=== PATIENT | female | born 1940 | race Caucasian/White ===

== ENCOUNTER 2016-07-27 21:52 | Emergency (ER) | payer MEDICARE, OTHER ==
[2016-07-28 00:38] LABS: HEMATOCRIT 41.5 % (36.0-47.0); HEMOGLOBIN 13.4 g/dL (12.0-15.5); HGB HCT DIFFERENCE -1.3; MEAN CORPUSCULAR HEMOGLOBIN 30.2 pg (27.0-33.4); MEAN CORPUSCULAR HGB CONC 32.4 g/dL (32.0-36.0); MEAN CORPUSCULAR VOLUME 93 fl (80-97); RED BLOOD COUNT 4.45 10^6/uL (3.72-5.28); RED CELL DISTRIBUTION WIDTH 14.2 % (11.5-14.0); WHITE BLOOD COUNT 12.4 10^3/uL (4.0-10.5)
[2016-07-28 00:40] LABS: APPEARANCE,URINE CLEAR; BILIRUBIN,URINE NEGATIVE (NEGATIVE); GLUCOSE, URINE NEGATIVE (NEGATIVE); KETONES,URINE NEGATIVE (NEGATIVE); LEUKOCYTE ESTERASE,URINE SMALL (NEGATIVE); NITRITE,URINE NEGATIVE (NEGATIVE); PROTEIN,URINE NEGATIVE (NEGATIVE); URINE SPECIFIC GRAVITY 1.009; UROBILINOGEN,URINE NEGATIVE mg/dL (<2.0)
[2016-07-28 00:47] LABS: PROTHROMBIN TIME 12.5 SEC (11.4-15.4)
[2016-07-28 00:48] LABS: PARTIAL THROMBOPLASTIN TIME 26.1 SEC (23.5-35.8)
[2016-07-28 00:55] LABS: BAND NEUTROPHILS % (MANUAL) 3 % (3-5); BASOPHILS % (MANUAL) 0 % (0-2); EOSINOPHILS % (MANUAL) 4 % (0-6); LYMPHOCYTES % (MANUAL) 47 % (13-45); TOTAL CELLS COUNTED 100
[2016-07-28 00:56] LABS: OVALOCYTES SLIGHT; POIKILOCYTOSIS SLIGHT; TOXIC GRANULATION SLIGHT
[2016-07-28 01:03] LABS: CREATINE KINASE MB 0.61 ng/mL (<4.55)
[2016-07-28 01:06] LABS: TROPONIN I < 0.012 ng/mL
[2016-07-28] MEDS ORDERED: FUROSEMIDE INJ/PF 40 MG/4 ML SDV IV ONE (01:23)
[2016-07-28] MEDS ORDERED: LORAZEPAM 0.5 MG TABLET PO ONE (01:23)
[2016-07-28 01:26] LABS: ALANINE AMINOTRANSFERASE 38 U/L (9-52); ALBUMIN 4.4 g/dL (3.5-5.0); ALKALINE PHOSPHATASE 74 U/L (38-126); ANION GAP 14 (5-19); ASPARTATE AMINO TRANSFERASE 57 U/L (14-36); BILIRUBIN,TOTAL 0.8 mg/dL (0.2-1.3); BLOOD UREA NITROGEN 23 mg/dL (7-20); CALCIUM 9.4 mg/dL (8.4-10.2); CARBON DIOXIDE 29 mmol/L (22-30); CHLORIDE 102 mmol/L (98-107); CREATINE KINASE 55 U/L (30-135); GLUCOSE 132 mg/dL (75-110); POTASSIUM 3.8 mmol/L (3.6-5.0); SODIUM 144.9 mmol/L (137-145); TOTAL PROTEIN 7.1 g/dL (6.3-8.2)
--- NOTE | 2016-07-28 01:37 | ER Document Report ---
ED General - General Chief Complaint: Cough Stated Complaint: COUGHING UP BLOOD Time seen by provider: 01:36 Notes: Patient is a 76-year-old female that comes emergency department for chief complaint of nosebleed. Patient states that she was eating dinner when she felt a trickling on her nose and wiped and noticed to be blood, she states that she went through about 6 tissues and then the bleeding stopped. Patient states that she has been very anxious today because it is the anniversary of her 's and she visited his grave, she also states she got in an argument with a family member. Patient states that she has been compliant with her blood pressure medications of losartan and metoprolol, states she is out of her Lasix and has been so for a few days, just got a prescription refill today, not taken a dose yet. Patient denies any shortness of breath, chest pain, she states she had a headache earlier which has resolved. She denies any focal numbness or weakness. She is not on a blood thinner other than aspirin. TRAVEL OUTSIDE OF THE [place] IN LAST 30 DAYS: No - Related Data Allergies/Adverse Reactions: Iodinated Contrast Media - Oral and [IV Dye, Iodine Containing] Allergy (Unknown , Verified 12/06/15 19:37) levofloxacin [From Levaquin] Allergy (Unknown, Verified 12/06/15 19:37) simvastatin [Simvastatin] Allergy (Unknown, Verified 12/06/15 19:37) tramadol Allergy (Verified 12/06/15 19:37) Past Medical History - General Information source: Patient - Social History Smoking Status: Never Smoker Frequency of alcohol use: None Drug Abuse: None Lives with: Family Family History: Reviewed & Not Pertinent Patient has suicidal ideation: No Patient has homicidal ideation: No - Past Medical History Cardiac Medical History: Reports: Hx Congestive Heart Failure, Hx Heart Attack, Hx Hypercholesterolemia, Hx Hypertension Denies: Hx Atrial Fibrillation Pulmonary Medical History: Reports: Hx Bronchitis, Hx Pneumonia Denies: Hx Asthma, Hx COPD, Hx Tuberculosis Neurological Medical History: Denies: Hx Migraine, Hx Seizures Endocrine Medical History: Denies: Hx Diabetes Mellitus Type 1, Hx Diabetes Mellitus Type 2 Renal/ Medical History: Reports: Hx End Stage Renal Disease. Denies: Hx Kidney Stones, Hx Peritoneal Dialysis Malignancy Medical History: Reports: Hx Leukemia GI Medical History: Reports: Hx Gastroesophageal Reflux Disease. Denies: Hx Hiatal Hernia, Hx Ulcer Musculoskeltal Medical History: Reports Hx Arthritis - gout Psychiatric Medical History: Denies: Hx Attention Deficit Hyperactivity Disorder, Hx Bipolar Disorder, Hx Depression, Hx Schizophrenia Past Surgical History: Reports: Hx Cardiac Catheterization, Hx Cardiac Surgery, Hx Thyroid Surgery - Thyroidectomy. Denies: Hx Abdominal Surgery, Hx Appendectomy, Hx Bowel Surgery, Hx Breast Surgery, Hx Section, Hx Cholecystectomy, Hx Genitourinary Surgery, Hx Gynecologic Surgery, Hx Hysterectomy, Hx Kidney (Renal Surgery), Hx Mastectomy, Hx Neurologic Surgery, Hx Nose Surgery, Hx Open Heart Surgery, Hx Oral Surgery, Hx Orthopedic Surgery, Hx Pancreatic Surgery, Hx Pituitary Surgery, Hx Rectal Surgery, Hx Tonsillectomy , Hx Tubal Ligation, Hx Urinary Tract Surgery, Hx Vascular Surgery - Immunizations Immunizations up to date: Yes Hx Diphtheria, Pertussis, Tetanus Vaccination: Yes Hx Pneumococcal Vaccination: 07/14/13 Review of Systems - Review of Systems Constitutional: No symptoms reported EENT: See HPI Cardiovascular: See HPI Respiratory: See HPI Gastrointestinal: No symptoms reported Genitourinary: No symptoms reported Female Genitourinary: No symptoms reported Musculoskeletal: No symptoms reported Skin: No symptoms reported Hematologic/Lymphatic: No symptoms reported Neurological/Psychological: See HPI Physical Exam - Vital signs Vitals: Temp Pulse BP Pulse Ox 98.0 F 68 198/88 H 95 07/27/16 22:45 07/27/16 22:45 07/27/16 22:45 07/27/16 22:45 Interpretation: Normal - General General appearance: Appears well, Alert - HEENT Head: Normocephalic, Atraumatic Eyes: Normal Conjunctiva: Normal Eyelashes: Normal Pupils: PERRL Ears: Normal External canal: Normal Tympanic membrane: Normal Sinus: Normal Nasal: Other - There is a small amount of dried epistaxis noted in the left nasal passage, no current bleeding, no septal hematoma or any swelling Pharynx: Normal Neck: Normal - Respiratory Respiratory status: No respiratory distress Chest status: Nontender Breath sounds: Normal Chest palpation: Normal - Cardiovascular Rhythm: Regular. No: Tachycardia Heart sounds: Normal auscultation, S1 appreciated, S2 appreciated Murmur: No - Abdominal Inspection: Normal Distension: No distension Bowel sounds: Normal Tenderness: Nontender. No: Tender, Guarding Organomegaly: No organomegaly - Back Back: Normal, Nontender - Extremities General upper extremity: Normal inspection, Nontender, Normal color, Normal ROM , Normal temperature General lower extremity: Normal inspection, Nontender, Normal color, Normal ROM , Normal temperature, Normal weight bearing. No: Gisella's sign - Neurological Neuro grossly intact: Yes Cognition: Normal Orientation: AAOx4 [place] Coma Scale Eye Opening: Spontaneous Beatriz Coma Scale Verbal: Oriented [place] Coma Scale Motor: Obeys Commands [place] Coma Scale Total: 15 Speech: Normal Motor strength normal: LUE, RUE, LLE, RLE Sensory: Normal - Psychological Associated symptoms: Normal affect, Normal mood - Skin Skin Temperature: Warm Skin Moisture: Dry Skin Color: Normal Course - Re-evaluation Re-evalutation: Patient well-appearing, she does have a small amount of Rales bilaterally noted , patient has been out of her Lasix, patient given a dose of Lasix here along with Ativan, patient takes 0.5 mg of Ativan at home as needed (she is prescribed this but she was not sure with anxiety medication was so she did not take this). No epistaxis currently noted, dried blood. BNP is somewhat elevated, chest x-ray is unremarkable, patient is not hypoxic, does not have labored breathing, not complaining of shortness of breath. EKG baseline, very mild leukocytosis, no fever, no tachycardia. On reevaluation patient is smiling, continues to be well appearing, however she continues to be hypertensive. Patient reminds me that she has forgotten to take her metoprolol succinate earlier today, patient was given a dose of captopril and had excellent results with this. Patient and family member asked about how they might begin looking into home health or general assistance, they state they will follow-up with her primary care, she states she'll return if she worsens in any way including shortness of breath, chest pain, return to nosebleed that cannot be controlled, or any other concerning symptoms. - Vital Signs Vital signs: Temp Pulse Resp BP Pulse Ox 97.7 F 68 16 151/81 H 99 07/28/16 05:04 07/27/16 22:45 07/28/16 04:45 07/28/16 04:45 07/28/16 04:45 - Laboratory Result Diagrams: 07/28/16 00:05 07/28/16 00:05 Laboratory results interpreted by me: 07/27/16 07/28/16 07/28/16 23:49 00:05 00:05 WBC 12.4 H RDW 14.2 H Seg Neuts % (Manual) 37 L Lymphocytes % (Manual) 47 H Abs Lymphs (Manual) 6.6 H BUN 23 H Creatinine 1.30 H Est GFR ( Amer) 48 L Est GFR (Non-Af Amer) 40 L Glucose 132 H AST 57 H NT-Pro-B Natriuret Pep Ur Leukocyte Esterase SMALL H 07/28/16 00:05 WBC RDW Seg Neuts % (Manual) Lymphocytes % (Manual) Abs Lymphs (Manual) BUN Creatinine Est GFR ( Amer) Est GFR (Non-Af Amer) Glucose AST NT-Pro-B Natriuret Pep 2000 H Ur Leukocyte Esterase Discharge - Discharge Clinical Impression: Epistaxis, Hypertensive urgency Condition: Stable Disposition: HOME, SELF-CARE Additional Instructions: Please resume your Lasix and metoprolol as prescribed. Please follow nosebleed instructions below. If you feel anxious or worked up please take your lorazepam as prescribed. Follow-up with your primary care for arrangements for assistance/home health. Return to the emergency department for any concerning or worsening symptoms including shortness of breath, severe headache, returned nosebleed, chest pain, or any other concerning symptoms. Nosebleed Instructions There is a significant chance of re-bleeding following a nosebleed. Proper care makes this less likely. Do not touch the nose for 24 hours. Do not blow the nose forcefully for one week. After 24 hours, gently apply Vaseline ointment to both nostrils with the tip of a finger, three times a day, for one week. It's normal to have a bloody mucous discharge for a few days. If active bleeding recurs, blow all the blood from the nose, then sit quietly and pinch the nose as firmly as possible for 10 minutes. If this does not stop the bleeding, return for further care. If packing was left in the nose and it starts to come out of the nostril, either tuck it back in or cut it off. Don't pull it out. Return for recheck and removal of the packing when instructed. Persons with frequent nosebleeds should avoid aspirin (unless prescribed for another reason). Humidity in the bedroom, and petroleum jelly applied to the nostrils at night may help. Referrals: PARESH NEUMANN MD [Primary Care Provider] - Follow up as needed
[2016-07-28] MEDS ORDERED: HYDRALAZINE HCL INJ/PF 20 MG/1 ML SDV IV ONE (03:48)
[2016-07-28] MEDS ORDERED: METOPROLOL TARTRATE 100 MG TABLET PO ONE (03:52)
[2016-07-28] MEDS ORDERED: CAPTOPRIL 25 MG TABLET PO ONE (03:55)
[2016-07-28 05:03] VITALS: BP 151/81
--- NOTE | 2016-07-28 08:01 | EKG REPORT ---
SEVERITY:- ABNORMAL ECG - SINUS RHYTHM LEFT ANTERIOR FASCICULAR BLOCK LVH WITH SECONDARY REPOLARIZATION ABNORMALITY ANTERIOR Q WAVES, POSSIBLY DUE TO LVH : Confirmed by: Ronnie Suresh MD 28-Jul-2016 08:01:02
== END 2016-07-28 05:04 | disposition home or self-care (01) ==
LOC: ER 21:52
DX: R04.0 Epistaxis (principal); I16.0 Hypertensive urgency; I13.2 Hypertensive heart and chronic kidney disease with heart failure and with stage 5 chronic kidney disease, or end stage renal disease; I50.9 Heart failure, unspecified; N18.6 End stage renal disease; I25.2 Old myocardial infarction; F41.9 Anxiety disorder, unspecified; D72.829 Elevated white blood cell count, unspecified; Z79.899 Other long term (current) drug therapy; Z79.82 Long term (current) use of aspirin; Z91.041 Radiographic dye allergy status; Z88.1 Allergy status to other antibiotic agents; Z88.8 Allergy status to other drugs, medicaments and biological substances; Z88.5 Allergy status to narcotic agent; Z85.6 Personal history of leukemia; Z91.14 Patient's other noncompliance with medication regimen
CPT/HCPCS: 93005; 99284; 96374; 36415; 82553; 82550; 85025; 85610; 85730; 80053; 81001; 84484; 83880; 71010; 93010; A9270 ×2; J1940; J3490

== ENCOUNTER 2017-03-01 10:22 | Inpatient (IN) | payer MEDICARE, OTHER ==
[2017-03-01] MEDS ORDERED: ASPIRIN 81 MG TABLET, CHEWABLE PO ONE (10:54)
--- NOTE | 2017-03-01 10:58 | ER Document Report ---
ED Medical Screen (RME) - General Chief Complaint: Chest Pain Stated Complaint: CHEST PAIN Time Seen by Provider: 03/01/17 10:57 Notes: The patient is a 76-year-old female, past medical history CAD, presents with 2 days of intermittent chest pain radiating to her left jaw. She had this in the past when she had her ID. Currently chest pain-free. PE: NAD. Bradycardia. Lungs CTAB. I have greeted and performed a rapid initial assessment of this patient. A comprehensive ED assessment and evaluation of the patient, analysis of test results and completion of the medical decision making process will be conducted by additional ED providers. TRAVEL OUTSIDE OF THE [place] IN LAST 30 DAYS: No - Related Data Allergies/Adverse Reactions: Iodinated Contrast- Oral and IV Dye [IV Dye, Iodine Containing] Allergy (Unknown , Verified 12/06/15 19:37) levofloxacin [From Levaquin] Allergy (Unknown, Verified 12/06/15 19:37) simvastatin [Simvastatin] Allergy (Unknown, Verified 12/06/15 19:37) tramadol Allergy (Verified 12/06/15 19:37) Past Medical History - Past Medical History Cardiac Medical History: Reports: Hx Congestive Heart Failure, Hx Heart Attack, Hx Hypercholesterolemia, Hx Hypertension Denies: Hx Atrial Fibrillation Pulmonary Medical History: Reports: Hx Bronchitis, Hx Pneumonia Denies: Hx Asthma, Hx COPD, Hx Tuberculosis Neurological Medical History: Denies: Hx Migraine, Hx Seizures Endocrine Medical History: Denies: Hx Diabetes Mellitus Type 1, Hx Diabetes Mellitus Type 2 Renal/ Medical History: Reports: Hx End Stage Renal Disease. Denies: Hx Kidney Stones, Hx Peritoneal Dialysis Malignancy Medical History: Reports: Hx Leukemia GI Medical History: Reports: Hx Gastroesophageal Reflux Disease. Denies: Hx Hiatal Hernia, Hx Ulcer Musculoskeltal Medical History: Reports Hx Arthritis - gout Psychiatric Medical History: Denies: Hx Attention Deficit Hyperactivity Disorder, Hx Bipolar Disorder, Hx Depression, Hx Schizophrenia Past Surgical History: Reports: Hx Cardiac Catheterization, Hx Cardiac Surgery, Hx Thyroid Surgery - Thyroidectomy. Denies: Hx Abdominal Surgery, Hx Appendectomy, Hx Bowel Surgery, Hx Breast Surgery, Hx Section, Hx Cholecystectomy, Hx Genitourinary Surgery, Hx Gynecologic Surgery, Hx Hysterectomy, Hx Kidney (Renal Surgery), Hx Mastectomy, Hx Neurologic Surgery, Hx Nose Surgery, Hx Open Heart Surgery, Hx Oral Surgery, Hx Orthopedic Surgery, Hx Pancreatic Surgery, Hx Pituitary Surgery, Hx Rectal Surgery, Hx Tonsillectomy , Hx Tubal Ligation, Hx Urinary Tract Surgery, Hx Vascular Surgery - Immunizations Immunizations up to date: Yes Hx Diphtheria, Pertussis, Tetanus Vaccination: Yes Physical Exam - Vital signs Vitals: Temp Pulse Resp BP Pulse Ox 98.0 F 49 L 20 169/66 H 96 03/01/17 10:39 03/01/17 10:39 03/01/17 10:39 03/01/17 10:39 03/01/17 10:39 Course - Vital Signs Vital signs: Temp Pulse Resp BP Pulse Ox 98.0 F 49 L 20 169/66 H 96 03/01/17 10:39 03/01/17 10:39 03/01/17 10:39 03/01/17 10:39 03/01/17 10:39
--- NOTE | 2017-03-01 11:22 | ER Document Report ---
ED Cardiac - General Mode of Arrival: Wheelchair Information source: Patient, Relative - selmaers x2 TRAVEL OUTSIDE OF THE [place] IN LAST 30 DAYS: No - HPI Patient complains to provider of: Chest pain, Other - jaw pain Chest pain radiation location: Left jaw Similar symptoms previously: Yes Recently seen / treated by doctor: No <MAXIM STRICKLAND - Last Filed: 03/01/17 15:22> <IGGY MENDEZ - Last Filed: 03/01/17 19:32> - General Chief Complaint: Chest Pain Stated Complaint: CHEST PAIN Time Seen by Provider: 03/01/17 11:42 Notes: Patient is a pleasant 76-year-old female presents emergency department for intermittent chest pain and left jaw pain 2 days. Patient has a history of a previous NM where she had left arm and left jaw pain. Patient took 2 baby Aspirin yesterday to relieve the pain and last night when she woke up with the pain she took some of her medication (beta aaron 100 mg). Patient states she usually takes her medications in the morning. Patient denies any new extremity edema or weight gain. Patient also denies any new weakness or increased tiredness due to shortness of breath or the chest pain. Patient takes Lasix daily and is on 3L home O2. Patient lost her 2 years ago and states she has had a rough 2 years and is having lots of stress. Daughters state the patient takes Ativan daily; patient states this takes the edge off her anxiety/ stress. Patient currently does not have any chest pain. Patient denies any history of blood clots. Patient's previous NM was in 1999 and she had pain in her jaw and left arm during this event. Patient states she had a stent placed in her "heart and liver." Patient also has a history of kidney disease but does not know anything further about this. Patient also has non-Hodgkin's lymphoma, hypertension, hypercholesterolemia, CHF, and COPD. Patient was last admitted to the hospital about 2 years ago. 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 Brewster PCP: Dr. Redd (MAXIM STRICKLAND) - Related Data Allergies/Adverse Reactions: Iodinated Contrast- Oral and IV Dye [IV Dye, Iodine Containing] Allergy (Unknown , Verified 03/01/17 11:23) levofloxacin [From Levaquin] Allergy (Unknown, Verified 03/01/17 11:23) simvastatin [Simvastatin] Allergy (Unknown, Verified 03/01/17 11:23) tramadol Allergy (Verified 03/01/17 11:23) Home Medications: Current Home Medications Allopurinol [Zyloprim 300 mg Tablet] 300 mg PO DAILY 03/01/17 [History] Atorvastatin Calcium [Lipitor 10 mg Tablet] 10 mg PO QHS 03/01/17 [History] Colchicine [Colcrys 0.6 mg Tablet] 0.6 mg PO DAILY 03/01/17 [History] Duloxetine HCl 30 mg PO Q12 03/01/17 [History] Escitalopram Oxalate [Lexapro 10 mg Tablet] 10 mg PO DAILY 03/01/17 [History] Furosemide [Lasix 40 mg Tablet] 40 mg PO QAM 03/01/17 [History] Gabapentin [Neurontin 100 mg Capsule] 100 mg PO Q8 03/01/17 [History] Isosorbide Mononitrate [Imdur 60 mg Tablet.er] 60 mg PO DAILY 03/01/17 [History] Levothyroxine Sodium [Synthroid] 125 mcg PO QAM 03/01/17 [History] Lorazepam [Ativan 0.5 mg Tablet] 0.5 mg PO TIDP PRN 03/01/17 [History] Metoprolol Succinate [Toprol XL 100 mg Tablet] 100 mg PO DAILY 03/01/17 [History ] Zolpidem Tartrate [Ambien 5 mg Tablet] 5 mg PO QHS 03/01/17 [History] Past Medical History - General Information source: Patient - Social History Smoking Status: Unknown if Ever Smoked Family History: None Patient has suicidal ideation: No Patient has homicidal ideation: No - Past Medical History Cardiac Medical History: Reports: Hx Congestive Heart Failure, Hx Heart Attack - 1999 w/ stent, Hx Hypercholesterolemia, Hx Hypertension Pulmonary Medical History: Reports: Hx Bronchitis, Hx Pneumonia Renal/ Medical History: Reports: Hx End Stage Renal Disease Malignancy Medical History: Reports: Hx Leukemia GI Medical History: Reports: Hx Gastroesophageal Reflux Disease Musculoskeltal Medical History: Reports Hx Arthritis - gout Past Surgical History: Reports: Hx Cardiac Catheterization, Hx Thyroid Surgery - Thyroidectomy - Immunizations Immunizations up to date: Yes Hx Diphtheria, Pertussis, Tetanus Vaccination: Yes Hx Pneumococcal Vaccination: 07/14/13 <MAXIM STRICKLAND - Last Filed: 03/01/17 15:22> Review of Systems - Review of Systems Constitutional: No symptoms reported EENT: See HPI, Other - jaw pain Cardiovascular: See HPI, Chest pain Respiratory: No symptoms reported Gastrointestinal: No symptoms reported Genitourinary: No symptoms reported Female Genitourinary: No symptoms reported Musculoskeletal: See HPI Skin: No symptoms reported Hematologic/Lymphatic: No symptoms reported Neurological/Psychological: No symptoms reported -: Yes All other systems reviewed and negative <EILEENMAXIM GALO - Last Filed: 03/01/17 15:22> Physical Exam - Vital signs Interpretation: Hypertensive, Bradycardic <MAXIM STRICKLAND - Last Filed: 03/01/17 15:22> <ANDREAIGGY - Last Filed: 03/01/17 19:32> - Vital signs Vitals: Temp Pulse Resp BP Pulse Ox 98.0 F 49 L 20 169/66 H 96 03/01/17 10:39 03/01/17 10:39 03/01/17 10:39 03/01/17 10:39 03/01/17 10:39 - Notes Notes: GENERAL: Alert, interacts well, pleasant. Mild distress. HEAD: Normocephalic, atraumatic. EYES: Appear normal. Pupils equal, round, and reactive to light. Extraocular movements intact. ENT: Moist mucus membranes, tongue midline. NECK: Full range of motion. Supple. Trachea midline. LUNGS: Crackles at the bases bilaterally. No respiratory distress. HEART: Regular rate and rhythm. No murmurs, gallops, or rubs. ABDOMEN: Soft, non-tender. Non-distended. Normal bowel sounds. EXTREMITIES: Moves all 4 extremities spontaneously. Normal strength. No edema. Good femoral, radial, and dorsalis pedis pulses. NEUROLOGICAL: Alert and oriented x3. Normal speech. No focal neurological deficits. GSC 15. PSYCH: Normal affect, normal mood. SKIN: Warm, dry, normal turgor. No rashes or lesions noted. (MAXIM STRICKLAND) Course - Laboratory Result Diagrams: 03/01/17 11:10 03/01/17 11:10 - Consults Dr. Redd Time consulted: 13:47 Consulted provider: will see as inpatient <EMMAXIM - Last Filed: 03/01/17 15:22> - Laboratory Result Diagrams: 03/01/17 11:10 03/01/17 11:10 <IGGY MENDEZ - Last Filed: 03/01/17 19:32> - Re-evaluation Re-evalutation: 03/01/17 14:44 Patient presents the emergency department 2 day history of intermittent chest pain radiating to her left jaw. She has a history of NM in 1999. With stent placement has not had any problems since and sees Dr. Ghotra. She has history of CHF and COPD and is chronically on 2 L of oxygen at night. Past to evening she is woke up in the middle the night and taken a double dose of her heart medication which is primarily been metoprolol. So she is taken to days with a 200 mg a day. She states that she then goes back to bed but her family found out about today and asked her to come in here. On ED arrival she is chest pain-free and bradycardic which I suspect is due to the beta-blockers that she is increased over the past 2 days. EKG is nonacute except for worsening ST inversion in V5 and V6. Troponin is initially negative chest x- ray is nonacute she remains hemodynamically stable and chest pain-free after receiving aspirin I spoke with Dr. Munoz he is going admit patient to hospital IMCU cardiac consultation and further assessment (IGGY MENDEZ) - Vital Signs Vital signs: Temp Pulse Resp BP Pulse Ox 97.5 F 55 L 20 171/73 H 95 03/01/17 17:24 03/01/17 17:24 03/01/17 17:24 03/01/17 17:24 03/01/17 17:24 - Laboratory Laboratory results interpreted by me: 03/01/17 03/01/17 11:10 11:10 WBC 14.9 H RDW 14.6 H Seg Neuts % (Manual) 26 L Band Neutrophils % 2 L Lymphocytes % (Manual) 66 H Abs Lymphs (Manual) 10.0 H Creatinine 1.31 H Est GFR ( Amer) 48 L Est GFR (Non-Af Amer) 39 L Glucose 184 H Direct Bilirubin 0.5 H AST 74 H ALT 65 H - Consults Dr. Redd Reason for consultation: 03/01/17 13:47 Dr. Redd was paged for possible admission. 03/01/17 14:[address] Redd again for possible admission. 03/01/17 14:[address] Redd who will admit the patient. (MAXIM STRICKLAND) Critical Care Note - Critical Care Note Total time excluding time spent on procedures (mins): 60 <IGGY MENDEZ - Last Filed: 03/01/17 19:32> Discharge <MAXIM STRICKLAND - Last Filed: 03/01/17 15:22> - Discharge Admitting Provider: [facility] Unit Admitted: IMCU <IGGY MENDEZ - Last Filed: 03/01/17 19:32> - Discharge Clinical Impression: CAD (coronary artery disease) Qualifiers: Coronary Disease-Associated Artery/Lesion type: unspecified vessel or lesion type [place] vs. transplanted heart: [place] heart Associated angina: without angina Qualified Code(s): I25.10 - Atherosclerotic heart disease of [place] coronary artery without angina pectoris Condition: Stable Disposition: ADMITTED INPATIENT Scribe Attestation: 03/01/17 14:43 I personally performed the services described in the documentation reviewed the documentation recorded by my scribe in my presence and it accurately and completely records my words and actions (IGGY MENDEZ) Scribe Documentation - Scribe Written by Scribe:: Latrice Wei, 03/01/2017 12:34 acting as scribe for :: Andrea <MAXIM STRICKLAND - Last Filed: 03/01/17 15:22>
--- NOTE | 2017-03-01 11:44 | RADIOLOGY REPORT (SQ) ---
EXAM DESCRIPTION: CHEST SINGLE VIEW COMPLETED DATE/TIME: 03/01/2017 11:36 am REASON FOR STUDY: chest pain COMPARISON: 05/29/2016 EXAM PARAMETERS: NUMBER OF VIEWS: One view. TECHNIQUE: Digital Frontal radiographic views of the chest acquired. RADIATION DOSE: NA LIMITATIONS: None. FINDINGS: LUNGS AND PLEURA: There is mild scarring right base. There is no infiltrate or effusion n o mass is seen MEDIASTINUM AND HILAR STRUCTURES: No masses or contour abnormalities. HEART AND VASCULAR STRUCTURES: The heart size is borderline. There is no evidence of failure BONES: No acute findings. HARDWARE: None. OTHER: No other significant finding. IMPRESSION: Borderline cardiomegaly without CHF. TECHNICAL DOCUMENTATION: JOB ID: [id number]- All Rights Reserved
[2017-03-01 11:53] LABS: HEMATOCRIT 38.5 % (36.0-47.0); HEMOGLOBIN 12.9 g/dL (12.0-15.5); HGB HCT DIFFERENCE 0.2; MEAN CORPUSCULAR HGB CONC 33.5 g/dL (32.0-36.0); MEAN CORPUSCULAR VOLUME 96 fl (80-97); RED BLOOD COUNT 4.02 10^6/uL (3.72-5.28); RED CELL DISTRIBUTION WIDTH 14.6 % (11.5-14.0); WHITE BLOOD COUNT 14.9 10^3/uL (4.0-10.5)
[2017-03-01 12:10] LABS: ALANINE AMINOTRANSFERASE 65 U/L (9-52); ALBUMIN 4.2 g/dL (3.5-5.0); ALKALINE PHOSPHATASE 89 U/L (38-126); ANION GAP 11 (5-19); ASPARTATE AMINO TRANSFERASE 74 U/L (14-36); BILIRUBIN,DIRECT 0.5 mg/dL (0.0-0.4); BILIRUBIN,TOTAL 0.8 mg/dL (0.2-1.3); BLOOD UREA NITROGEN 17 mg/dL (7-20); CALCIUM 9.7 mg/dL (8.4-10.2); CARBON DIOXIDE 30 mmol/L (22-30); CHLORIDE 99 mmol/L (98-107); CREATINE KINASE 43 U/L (30-135); CREATININE RESULT 1.31 mg/dL (0.52-1.25); GLUCOSE 184 mg/dL (75-110); POTASSIUM 4.2 mmol/L (3.6-5.0); SODIUM 139.8 mmol/L (137-145); TOTAL PROTEIN 6.4 g/dL (6.3-8.2)
[2017-03-01 12:19] LABS: BAND NEUTROPHILS % (MANUAL) 2 % (3-5); BASOPHILS % (MANUAL) 0 % (0-2); EOSINOPHILS % (MANUAL) 1 % (0-6); LYMPHOCYTES % (MANUAL) 66 % (13-45); TOTAL CELLS COUNTED 100
[2017-03-01 12:21] LABS: ANISOCYTOSIS SLIGHT; OVALOCYTES SLIGHT; POIKILOCYTOSIS SLIGHT; ROULEAUX 1+
[2017-03-01 12:22] LABS: CREATINE KINASE MB 0.45 ng/mL (<4.55)
[2017-03-01 12:31] LABS: TROPONIN I 0.051 ng/mL
[2017-03-01] MEDS ORDERED: NITROGLYCERIN 0.4 MG/TAB 25 TAB/BOTTLE SL PRN (16:58)
[2017-03-01] MEDS ORDERED: LORAZEPAM 0.5 MG TABLET PO PRN (17:06)
--- NOTE | 2017-03-01 17:17 | PDOC H&P ---
History of Present Illness Admission Date/PCP: 03/01/17 15:11 PARESH NEUMANN, Patient complains of: Chest pain History of Present Illness: EVER CARRASCO is a 76 year old female Past Medical History Cardiac Medical History: Reports: Congestive Heart Failure, Coronary Artery Disease, Myocardial Infarction - 1999 w/ stent, Hyperlipidema, Hypertension Denies: Atrial Fibrillation Pulmonary Medical History: Reports: Bronchitis, Pneumonia Denies: Asthma, Chronic Obstructive Pulmonary Disease (COPD), Tuberculosis Neurological Medical History: Denies: Migraine, Seizures Endocrine Medical History: Reports: Hypothyroidism Denies: Diabetes Mellitus Type 1, Diabetes Mellitus Type 2 Renal/ Medical History: Reports: Chronic Kidney Disease Malignancy Medical History: Reports: Leukemia GI Medical History: Reports: Gastroesophageal Reflux Disease Denies: Hiatal Hernia Musculoskeltal Medical History: Reports: Arthritis - gout Psychiatric Medical History: Denies: Attention Deficit Hyperactivity Disorder, Bipolar Disorder, Depression Hematology: Denies: Anemia, Sickle Cell Disease Past Surgical History Past Surgical History: Parathyroidectomy Kyphoplasty Past Surgical History: Reports: Cardiac Catheterization, Thyroidectomy Denies: Appendectomy, Section, Cholecystectomy, Hysterectomy, Mastectomy, Orthopedic Surgery, Tonsillectomy, Tubal Ligation, Vascular Surgery Social History Information Source: Patient Lives with: Alone Smoking Status: Former Smoker Frequency of Alcohol Use: None Hx Recreational Drug Use: No Hx Prescription Drug Abuse: No - Advance Directive Resuscitation Status: Full Code Family History Family History: None, CVA Parental Family History Reviewed: Yes Children Family History Reviewed: Yes Sibling(s) Family History Reviewed.: Yes Medication/Allergy Home Medications: Allopurinol [Zyloprim 300 mg Tablet] 300 mg PO DAILY 03/01/17 Atorvastatin Calcium [Lipitor 10 mg Tablet] 10 mg PO QHS 03/01/17 Colchicine [Colcrys 0.6 mg Tablet] 0.6 mg PO DAILY 03/01/17 Duloxetine HCl 30 mg PO Q12 03/01/17 Escitalopram Oxalate [Lexapro 10 mg Tablet] 10 mg PO DAILY 03/01/17 Furosemide [Lasix 40 mg Tablet] 40 mg PO QAM 03/01/17 Gabapentin [Neurontin 100 mg Capsule] 100 mg PO Q8 03/01/17 Isosorbide Mononitrate [Imdur 60 mg Tablet.er] 60 mg PO DAILY 03/01/17 Levothyroxine Sodium [Synthroid] 125 mcg PO QAM 03/01/17 Lorazepam [Ativan 0.5 mg Tablet] 0.5 mg PO TIDP PRN 03/01/17 Metoprolol Succinate [Toprol XL 100 mg Tablet] 100 mg PO DAILY 03/01/17 Zolpidem Tartrate [Ambien 5 mg Tablet] 5 mg PO QHS 03/01/17 Allergies/Adverse Reactions: Iodinated Contrast- Oral and IV Dye [IV Dye, Iodine Containing] Allergy (Unknown , Verified 03/01/17 11:23) levofloxacin [From Levaquin] Allergy (Unknown, Verified 03/01/17 11:23) simvastatin [Simvastatin] Allergy (Unknown, Verified 03/01/17 11:23) tramadol Allergy (Verified 03/01/17 11:23) Review of Systems All systems: as per PMH Physical Exam Vital Signs: Temp Pulse Resp BP Pulse Ox 98.0 F 49 L 18 171/90 H 94 03/01/17 10:39 03/01/17 10:39 03/01/17 16:00 03/01/17 14:01 03/01/17 16:00 Intake & Output 02/28/17 03/01/17 03/02/17 06:59 06:59 06:59 Weight 70 kg General appearance: PRESENT: mild distress Head exam: PRESENT: atraumatic Neck exam: ABSENT: carotid bruit, JVD Respiratory exam: PRESENT: crackles, rhonchi Cardiovascular exam: PRESENT: RRR, +S1, +S2 Pulses: PRESENT: +1 pedal pulses bilateral GI/Abdominal exam: PRESENT: normal bowel sounds, soft Extremities exam: PRESENT: tenderness Musculoskeletal exam: PRESENT: tenderness Neurological exam: PRESENT: alert, awake Results Impressions: Chest X-Ray 03/01/17 10:54 IMPRESSION: Borderline cardiomegaly without CHF. Assessment & Plan - Diagnosis (1) Acute coronary syndrome Is this a current diagnosis for this admission?: Yes Plan: Abnormal EKG with T inversions. Slightly elevated troponins We will consult cardiology. Will obtain cardiac enzymes. We will continue with nitrates and Lovenox and aspirin. (2) CAD (coronary artery disease) Qualifiers: Coronary Disease-Associated Artery/Lesion type: unspecified vessel or lesion type [place] vs. transplanted heart: [place] heart Associated angina: without angina Qualified Code(s): I25.10 - Atherosclerotic heart disease of [place] coronary artery without angina pectoris Plan: Continue current regimen (3) CKD (chronic kidney disease) stage 3, GFR 30-59 ml/min Is this a current diagnosis for this admission?: Yes Plan: We will adjust medications accordingly (4) CLL (chronic lymphocytic leukemia) Is this a current diagnosis for this admission?: Yes Plan: Stable continue current treatment (5) COPD (chronic obstructive pulmonary disease) Is this a current diagnosis for this admission?: Yes Plan: Continue O2 and will consider nebulization treatments (6) Hypothyroid Is this a current diagnosis for this admission?: Yes Plan: Continue present dose of medication (7) HTN (hypertension) Is this a current diagnosis for this admission?: Yes Plan: We will adjust blood pressure medications
[2017-03-01 18:59] LABS: CREATINE KINASE MB 0.47 ng/mL (<4.55); TROPONIN I 0.056 ng/mL
--- NOTE | 2017-03-01 20:14 | EKG REPORT ---
SEVERITY:- ABNORMAL ECG - SINUS ARRHYTHMIA LEFT AXIS DEVIATION LVH WITH SECONDARY REPOLARIZATION ABNORMALITY ANTERIOR Q WAVES, POSSIBLY DUE TO LVH : Confirmed by: Omkar Bustillo 01-Mar-2017 20:13:50
[2017-03-01] MEDS: DULOXETINE HCL 30 MG CAPSULE.DR PO SCH (21:21)
[2017-03-01] MEDS: GABAPENTIN 100 MG CAPSULE PO SCH (21:21)
[2017-03-01] MEDS: ATORVASTATIN CALCIUM 10 MG TABLET PO SCH (21:21)
[2017-03-01] MEDS: ENOXAPARIN SODIUM INJ 80 MG/0.8 ML DISP.SYRIN SUBCUT SCH (21:26)
[2017-03-01] MEDS: ZOLPIDEM TARTRATE 5 MG TABLET PO SCH (21:26)
[2017-03-02 01:42] LABS: CREATINE KINASE MB 0.44 ng/mL (<4.55)
[2017-03-02 01:45] LABS: TROPONIN I 0.054 ng/mL
[2017-03-02] MEDS: GABAPENTIN 100 MG CAPSULE PO SCH ×3 (05:20→22:14)
[2017-03-02 07:30] LABS: HEMATOCRIT 36.7 % (36.0-47.0); HEMOGLOBIN 12.1 g/dL (12.0-15.5); HGB HCT DIFFERENCE -0.4; MEAN CORPUSCULAR HEMOGLOBIN 32.3 pg (27.0-33.4); MEAN CORPUSCULAR VOLUME 98 fl (80-97); RED BLOOD COUNT 3.75 10^6/uL (3.72-5.28); RED CELL DISTRIBUTION WIDTH 14.5 % (11.5-14.0); WHITE BLOOD COUNT 11.6 10^3/uL (4.0-10.5)
[2017-03-02 07:37] LABS: ANION GAP 10 (5-19); BLOOD UREA NITROGEN 21 mg/dL (7-20); CALCIUM 9.4 mg/dL (8.4-10.2); CARBON DIOXIDE 28 mmol/L (22-30); CHLORIDE 102 mmol/L (98-107); CREATININE RESULT 1.21 mg/dL (0.52-1.25); GLUCOSE 147 mg/dL (75-110); POTASSIUM 3.9 mmol/L (3.6-5.0); SODIUM 140.1 mmol/L (137-145)
[2017-03-02 07:49] LABS: CREATINE KINASE MB 0.4 ng/mL (<4.55); TROPONIN I 0.044 ng/mL
[2017-03-02] MEDS ORDERED: (PENDING PHARMACY ID) (Levothyroxine Sodium [Synthroid] 125 MCG) PO SCH (08:00)
[2017-03-02 08:04] LABS: BASOPHILS % (MANUAL) 2 % (0-2); EOSINOPHILS % (MANUAL) 5 % (0-6); HYPOCHROMASIA SLIGHT; LYMPHOCYTES % (MANUAL) 71 % (13-45); POLYCHROMASIA SLIGHT; SMUDGE CELLS PRESENT; TOTAL CELLS COUNTED 100
--- NOTE | 2017-03-02 08:32 | PDOC PROGRESS REPORT ---
Subjective Progress Note for:: 03/02/17 Subjective:: The patient states to feel much better. She denies any chest pain or jaw pain. Cardiac enzymes were stable. Her EKG was unchanged. Physical Exam Vital Signs: Temp Pulse Resp BP Pulse Ox 98.2 F 52 L 18 154/58 H 98 03/02/17 07:18 03/02/17 07:18 03/02/17 07:18 03/02/17 07:18 03/02/17 07:18 Intake & Output 03/01/17 03/02/17 03/03/17 06:59 06:59 06:59 Intake Total 525 Balance 525 Weight 99.1 kg General appearance: PRESENT: no acute distress Head exam: PRESENT: atraumatic Eye exam: PRESENT: conjunctiva pink Neck exam: ABSENT: carotid bruit Respiratory exam: PRESENT: rhonchi Cardiovascular exam: PRESENT: bradycardia, +S1, +S2 Pulses: PRESENT: +1 pedal pulses bilateral GI/Abdominal exam: PRESENT: normal bowel sounds, soft Extremities exam: PRESENT: full ROM Musculoskeletal exam: PRESENT: ambulatory Neurological exam: PRESENT: alert, awake Results Laboratory Results: 03/02/17 06:30 03/02/17 06:30 03/02/17 03/02/17 06:30 06:30 WBC 11.6 H RBC 3.75 Hgb 12.1 Hct 36.7 MCV 98 H MCH 32.3 MCHC 33.0 RDW 14.5 H Plt Count 166 Seg Neutrophils % Not Reportable Lymphocytes % Not Reportable Monocytes % Not Reportable Eosinophils % Not Reportable Basophils % Not Reportable Absolute Neutrophils Not Reportable Absolute Lymphocytes Not Reportable Absolute Monocytes Not Reportable Absolute Eosinophils Not Reportable Absolute Basophils Not Reportable Sodium 140.1 Potassium 3.9 Chloride 102 Carbon Dioxide 28 Anion Gap 10 BUN 21 H Creatinine 1.21 Est GFR ( Amer) 52 L Est GFR (Non-Af Amer) 43 L Glucose 147 H Calcium 9.4 03/01/17 03/02/17 03/02/17 18:02 00:11 06:30 CK-MB (CK-2) 0.47 0.44 0.40 Troponin I 0.056 0.054 0.044 Impressions: Chest X-Ray 03/01/17 10:54 IMPRESSION: Borderline cardiomegaly without CHF. Assessment & Plan - Diagnosis (1) Acute coronary syndrome Is this a current diagnosis for this admission?: Yes Plan: The enzymes are stable. EKG stable. Awaiting cardiology consultation for further recommendations. (2) CAD (coronary artery disease) Qualifiers: Coronary Disease-Associated Artery/Lesion type: unspecified vessel or lesion type [place] vs. transplanted heart: [place] heart Associated angina: without angina Qualified Code(s): I25.10 - Atherosclerotic heart disease of [place] coronary artery without angina pectoris Plan: Stable continue current treatment (3) CKD (chronic kidney disease) stage 3, GFR 30-59 ml/min Is this a current diagnosis for this admission?: Yes Plan: Stable continue current treatment (4) CLL (chronic lymphocytic leukemia) Is this a current diagnosis for this admission?: Yes (5) COPD (chronic obstructive pulmonary disease) Is this a current diagnosis for this admission?: Yes Plan: Continue O2 and will consider nebulization treatments (6) Hypothyroid Is this a current diagnosis for this admission?: Yes (7) HTN (hypertension) Is this a current diagnosis for this admission?: Yes Plan: We will adjust blood pressure medications (8) Bradycardia Is this a current diagnosis for this admission?: Yes Plan: Most probably related to the dose of metoprolol. Will decrease the metoprolol
[2017-03-02] MEDS: FUROSEMIDE 40 MG TABLET PO SCH (08:41)
[2017-03-02] MEDS: LEVOTHYROXINE SODIUM 0.1 MG TABLET PO SCH (08:42)
[2017-03-02] MEDS: LEVOTHYROXINE SODIUM 0.025 MG TABLET PO SCH (08:42)
--- NOTE | 2017-03-02 09:29 | EKG REPORT ---
SEVERITY:- ABNORMAL ECG - SINUS RHYTHM LEFT AXIS DEVIATION LVH WITH SECONDARY REPOLARIZATION ABNORMALITY ANTERIOR Q WAVES, POSSIBLY DUE TO LVH : Confirmed by: Omkar Bustillo 02-Mar-2017 09:28:27
[2017-03-02] MEDS ORDERED: METOPROLOL TARTRATE 100 MG TABLET PO SCH ×2 (10:00)
--- NOTE | 2017-03-02 10:07 | Physician Advisory Note ---
Physician Advisor ProgressNote .: Pursuant to the plan for [facility], I have reviewed the medical record for this patient. Physician Advisor Statement: Please consider documentin. "Chronic hypoxemic respiratory failure requiring __L O2 at home" 2. "chronic diastolic CHF" [ECHO 2010 = EF >60%, possible diast dysfn, mild LVH] STatus: CP stays are "Obs until proven otherwise". This pt has had indet trop I's, nondynamic TWave Inversions, bradycardia due to overuse of beta aaron without associated symptomatic sequelae, is planned for cardiology consult today. Discussed with attending. Appears most appropriate for Obs status, not Inpt, unless pt develops new concerning clinical issues that are well documented that require a 2nd night of in-hospital care. [? Persistent severe bradycardia putting her at risk of ____? .... She has contiinued leukocytosis, but this is baseline for her CLL.] Thanks! CK
[2017-03-02] MEDS: COLCHICINE 0.6 MG TABLET PO SCH (10:23)
[2017-03-02] MEDS: ISOSORBIDE MONONITRATE 60 MG TAB.ER.24H PO SCH (10:23)
[2017-03-02] MEDS: ALLOPURINOL 300 MG TABLET PO SCH (10:23)
[2017-03-02] MEDS: ASPIRIN 81 MG TABLET, ENT COATED PO SCH (10:23)
[2017-03-02] MEDS: DULOXETINE HCL 30 MG CAPSULE.DR PO SCH ×2 (10:23→22:14)
[2017-03-02] MEDS: METOPROLOL TARTRATE 50 MG TABLET PO SCH ×2 (10:23→22:14)
[2017-03-02] MEDS: ENOXAPARIN SODIUM INJ 80 MG/0.8 ML DISP.SYRIN SUBCUT SCH ×2 (10:24→22:16)
[2017-03-02] MEDS: ATORVASTATIN CALCIUM 10 MG TABLET PO SCH (22:14)
[2017-03-02] MEDS: ZOLPIDEM TARTRATE 5 MG TABLET PO SCH (22:16)
[2017-03-03 05:00] LABS: HEMATOCRIT 35.5 % (36.0-47.0); HEMOGLOBIN 12.1 g/dL (12.0-15.5); HGB HCT DIFFERENCE 0.8; MEAN CORPUSCULAR HEMOGLOBIN 33.2 pg (27.0-33.4); MEAN CORPUSCULAR HGB CONC 34.1 g/dL (32.0-36.0); MEAN CORPUSCULAR VOLUME 97 fl (80-97); RED BLOOD COUNT 3.64 10^6/uL (3.72-5.28); WHITE BLOOD COUNT 10.9 10^3/uL (4.0-10.5)
[2017-03-03 05:18] LABS: ANION GAP 11 (5-19); BLOOD UREA NITROGEN 25 mg/dL (7-20); CALCIUM 9.2 mg/dL (8.4-10.2); CARBON DIOXIDE 29 mmol/L (22-30); CHLORIDE 99 mmol/L (98-107); CREATININE RESULT 1.22 mg/dL (0.52-1.25); GLUCOSE 157 mg/dL (75-110); POTASSIUM 3.9 mmol/L (3.6-5.0); SODIUM 139.3 mmol/L (137-145)
[2017-03-03] MEDS: GABAPENTIN 100 MG CAPSULE PO SCH ×2 (06:48→14:09)
[2017-03-03] MEDS: FUROSEMIDE 40 MG TABLET PO SCH (08:00)
[2017-03-03] MEDS: LEVOTHYROXINE SODIUM 0.025 MG TABLET PO SCH (08:00)
[2017-03-03] MEDS: LEVOTHYROXINE SODIUM 0.1 MG TABLET PO SCH (08:00)
--- NOTE | 2017-03-03 08:31 | PDOC PROGRESS REPORT ---
Subjective Progress Note for:: 03/03/17 Subjective:: The patient states to feel the same. She was seen by the cardiology last night and is scheduled for a stress test this morning. She continues to be bradycardic even though we have adjusted her metoprolol. Physical Exam Vital Signs: Temp Pulse Resp BP Pulse Ox 97.6 F 56 L 16 168/73 H 100 03/03/17 04:37 03/03/17 04:37 03/03/17 04:37 03/03/17 04:37 03/03/17 04:37 Intake & Output 03/02/17 03/03/17 03/04/17 06:59 06:59 06:59 Intake Total 525 1688 Output Total 0 Balance 525 1688 Weight 99.1 kg 99.1 kg General appearance: PRESENT: mild distress Head exam: PRESENT: atraumatic Eye exam: PRESENT: conjunctiva pink Neck exam: ABSENT: carotid bruit, JVD Respiratory exam: PRESENT: rhonchi Cardiovascular exam: PRESENT: bradycardia Pulses: PRESENT: +1 pedal pulses bilateral GI/Abdominal exam: PRESENT: normal bowel sounds, soft Extremities exam: PRESENT: full ROM Musculoskeletal exam: PRESENT: ambulatory Neurological exam: PRESENT: alert, awake Results Laboratory Results: 03/03/17 04:40 03/03/17 04:40 03/03/17 03/03/17 04:40 04:40 WBC 10.9 H RBC 3.64 L Hgb 12.1 Hct 35.5 L MCV 97 MCH 33.2 MCHC 34.1 RDW 14.0 Plt Count 154 Sodium 139.3 Potassium 3.9 Chloride 99 Carbon Dioxide 29 Anion Gap 11 BUN 25 H Creatinine 1.22 Est GFR ( Amer) 52 L Est GFR (Non-Af Amer) 43 L Glucose 157 H Calcium 9.2 03/01/17 03/02/17 03/02/17 18:02 00:11 06:30 CK-MB (CK-2) 0.47 0.44 0.40 Troponin I 0.056 0.054 0.044 Impressions: Chest X-Ray 03/01/17 10:54 IMPRESSION: Borderline cardiomegaly without CHF. Assessment & Plan - Diagnosis (1) Acute coronary syndrome Is this a current diagnosis for this admission?: Yes Plan: Presently scheduled for a stress test by cardiology (2) CAD (coronary artery disease) Qualifiers: Coronary Disease-Associated Artery/Lesion type: unspecified vessel or lesion type [place] vs. transplanted heart: [place] heart Associated angina: without angina Qualified Code(s): I25.10 - Atherosclerotic heart disease of [place] coronary artery without angina pectoris Plan: Stable awaiting stress test (3) CKD (chronic kidney disease) stage 3, GFR 30-59 ml/min Is this a current diagnosis for this admission?: Yes Plan: Stable will adjust the diuretics (4) CLL (chronic lymphocytic leukemia) Is this a current diagnosis for this admission?: Yes (5) COPD (chronic obstructive pulmonary disease) Is this a current diagnosis for this admission?: Yes Plan: We will continue with O2 and nebulization treatments (6) Hypothyroid Is this a current diagnosis for this admission?: Yes (7) HTN (hypertension) Is this a current diagnosis for this admission?: Yes Plan: Controlled with continue with present medications (8) Bradycardia Is this a current diagnosis for this admission?: Yes Plan: The bradycardia is persistent despite adjustment in medications. Will need to reevaluate after the stress test to see if any further reduction in beta blockers The persistent symptomatic bradycardia is placed in the patient at risk for possible syncopal episodes and needs to be further evaluated
--- NOTE | 2017-03-03 10:24 | EKG REPORT ---
SEVERITY:- ABNORMAL ECG - SINUS RHYTHM LEFT AXIS DEVIATION LVH WITH SECONDARY REPOLARIZATION ABNORMALITY ANTERIOR Q WAVES, POSSIBLY DUE TO LVH : Confirmed by: Omkar Bustillo 03-Mar-2017 10:24:21
[2017-03-03] MEDS: ENOXAPARIN SODIUM INJ 80 MG/0.8 ML DISP.SYRIN SUBCUT SCH (10:42)
[2017-03-03] MEDS: ALLOPURINOL 300 MG TABLET PO SCH (10:43)
[2017-03-03] MEDS: ISOSORBIDE MONONITRATE 60 MG TAB.ER.24H PO SCH (10:43)
[2017-03-03] MEDS: ASPIRIN 81 MG TABLET, ENT COATED PO SCH (10:43)
[2017-03-03] MEDS: DULOXETINE HCL 30 MG CAPSULE.DR PO SCH (10:43)
[2017-03-03] MEDS: METOPROLOL TARTRATE 50 MG TABLET PO SCH (10:43)
[2017-03-03] MEDS: COLCHICINE 0.6 MG TABLET PO SCH (10:43)
[2017-03-03] MEDS ORDERED: AMINOPHYLLINE INJ/PF 250 MG/10 ML SDV IV ONE (11:24)
[2017-03-03] MEDS ORDERED: REGADENOSON INJ 0.4 MG/5 ML DISP.SYRIN IV ONE (11:24)
--- NOTE | 2017-03-03 12:03 | DRAGON STRESS TEST REPORT ---
INTRAVENOUS LEXISCAN CARDIOLITE STRESS TEST USING SINGLE PHOTON EMMISION COMPUTERIZED TOMOGRAPHIC. DATE OF PROCEDURE: March 03, 2017 INDICATION : Chest pain, known history of CAD CARDIAC RISK FACTORS: Known history of CAD with prior myocardial infarction and stent placement, hypertension, dyslipidemia RESTING EKG: Sinus rhythm, LVH with secondary ST-T wave changes STRESS EKG: No significant changes noted with LexiScan bolus REASON FOR TERMINATION: Protocol. PROCEDURE REPORT: Baseline heart rate 57 beats per minute with blood pressure of 170/74. Patient had no significant complaints. Heart rate at 2 minutes post bolus 61 with a blood pressure of 165/61. 4 minutes post bolus heart rate 59 with blood pressure of 177/63. No significant additional EKG changes were noted. Patient had no significant complaints during the procedure or postprocedure. Patient injected with Aminophyllin 75 mg at 3 minutes or later after Lexiscan bolus. CONCLUSIONS: Normal EKG and hemodynamic response to IV LexiScan. NUCLEAR DATA: At rest the patient was given 14.61 millicuries of technetium 99 sestamibi injected intravenously. As per protocol rest gated SPECT images were obtained. Subsequently the patient was given intravenous LexiScan at a dose of 0.4 mg in 5 mL intravenously, followed by flush with normal saline. Subsequently the stress dose of 42.8 millicuries of technetium 99 sestamibi was injected intravenously. As per protocol stress gated images were obtained. NUCLEAR INTERPRETATION: Both raw and processed data were used for interpretation. Visual, qualitative, computer-generated quantitative data was used. There was good myocardial uptake of technetium compound. Motion artifact and soft tissue attenuations were noted. Increased visceral uptake was noted. No definitive areas of transient perfusion defect noted. No definitive areas of fixed perfusion defect or scars noted. EKG gated imaging showed LV EF at 43 %, rest and stress gated EF similar visually. T. I D. ratio was 1.01. Lung heart ratio noted to be within normal limits 0.32. No significant extracardiac and abnormal radiotracer activities were noted. RV free wall uptake was noted to be borderline increased. IMPRESSION: Also refer to comments under nuclear interpretation. Also test results needs to be interpreted in the context of pretest probability. 1. There is no definitive scintigraphic evidence of LexiScan induced myocardial ischemia. 2. There is no definitive scintigraphic evidence of myocardial infarction/scar. 3. EKG gated imaging shows left ventricular ejection fraction of approximately 43 %. 4. Clinical correlation requested as occasionally single vessel disease or balanced ischemia could be missed. In approximately 10% of the cases Lexiscan may not cause adequate vasodilatory stress. RECOMMENDATIONS: Aggressive risk factor modification, medical therapy. Clinical correlation with echocardiogram derived ejection fraction. Inability to exercise by itself can lead to increased cardiovascular event risks. Consider cardiology consultation and or follow-up if clinically indicated. I AM AVAILABLE FOR CARDIOLOGY CONSULTATION AND FOLLOWUP IF REQUESTED BY PMD Omkar Bustillo M.D., [employer] Operator septic tank service technician, Board certified in cardiovascular diseases, Nuclear cardiology, Echocardiography Cardiac CT and cardiac MRI Ph. [phone] [facility] MEDICAL CENTERJosselyn
[2017-03-03 17:06] VITALS: BP 147/66
--- NOTE | 2017-03-03 19:34 | XCELERA REPORT ---
[address] [address] Transthoracic Echocardiogram Report Name: EVER CARRASCO Age: 76 yrs Gender: Female : 1940 Patient Status: Inpatient Patient Location: [address] [place] [address] Study Date: 03/03/2017 08:28 AM Height: 64 in Weight: 218 lb BSA: 2.0 m2 Procedure: A complete two-dimensional transthoracic echocardiogram was performed (2D, M-mode, spectral and color flow Doppler). The study was technically difficult with many images being suboptimal in quality. Reason For Study: CP Ordering Physician: OMKAR SWAN Performed By: Melly Frausto Interpretation Summary Left ventricular systolic function is low normal. Doppler measurements suggest pseudonormalized left ventricular relaxation, which is associated with grade II/IV or mild to moderate diastolic dysfunction There is mild concentric left ventricular hypertrophy. The left ventricle is grossly normal size. Wall motion cannot be accurately commented on, but no definite regional wall motion abnormalities noted. The right ventricular systolic function is normal. The right atrium is normal in size The left atrium is mildly dilated. There is a mild amount of mitral regurgitation There is no mitral valve stenosis. There is a mild amount of aortic regurgitation There is no aortic valve stenosis There is a trace or physiologic amount of tricuspid regurgitation Tricuspid regurgitation jet envelope not well defined to measure RV systolic pressure accurately. The aortic root is not well visualized but is probably normal size. The inferior vena cava appeared normal and decreased > 50% with respiration (RAP 5-10 mmHg) There is no pericardial effusion. MMode/2D Measurements & Calculations RVDd: 3.6 cm LVIDd: 4.4 cm FS: 28.4 % Ao root diam: 3.1 cm IVSd: 1.3 cm LVIDs: 3.1 cm EDV(Teich): 86.1 ml LVPWd: 1.3 cm ESV(Teich): 38.6 ml Ao root area: 7.3 cm2 EF(Teich): 55.1 % LVOT diam: 2.2 cm LVOT area: 3.7 cm2 Doppler Measurements & Calculations MV E max eliseo: MV dec slope: Ao V2 max: AI max eliseo: 111.4 cm/sec 588.0 cm/sec2 206.2 cm/sec 454.3 cm/sec MV A max eliseo: MV dec time: Ao max PG: AI max P.5 cm/sec 0.19 sec 17.0 mmHg 82.6 mmHg MV E/A: 2.3 Ao V2 mean: AI dec slope: 135.6 cm/sec 158.9 cm/sec2 Ao mean PG: AI P1/2t: 8.6 mmHg 837.4 msec Ao V2 VTI: 49.0 cm MIRLANDE(I,D): 1.8 cm2 MIRLANDE(V,D): 1.6 cm2 LV V1 max PG: SV(LVOT): 88.6 ml PA V2 max: TR max eliseo: 3.2 mmHg 77.8 cm/sec 231.9 cm/sec LV V1 mean PG: PA max PG: TR max P.7 mmHg 2.4 mmHg 21.7 mmHg LV V1 max: 89.4 cm/sec LV V1 mean: 60.8 cm/sec LV V1 VTI: 24.1 cm Left Ventricle The left ventricle is grossly normal size. There is mild concentric left ventricular hypertrophy. Left ventricular systolic function is low normal. Doppler measurements suggest pseudonormalized left ventricular relaxation, which is associated with grade II/IV or mild to moderate diastolic dysfunction. Wall motion cannot be accurately commented on, but no definite regional wall motion abnormalities noted. Right Ventricle The right ventricle is grossly normal size. There is normal right ventricular wall thickness. The right ventricular systolic function is normal. Atria The right atrium is normal in size. The left atrium is mildly dilated. Interarterial septum not well visualized and not well dopplered. Cannot comment on ASD/PFO presence. Mitral Valve There is mild mitral leaflet calcification. There is mild mitral annular calcification. There is no mitral valve stenosis. There is a mild amount of mitral regurgitation. Aortic Valve The aortic valve is mildly calcified. There is no aortic valve stenosis. There is a mild amount of aortic regurgitation. Tricuspid Valve The tricuspid valve is not well visualized, but is grossly normal. There is no tricuspid stenosis. There is a trace or physiologic amount of tricuspid regurgitation. Tricuspid regurgitation jet envelope not well defined to measure RV systolic pressure accurately. Pulmonic Valve The pulmonic valve is not well visualized. Great Vessels The aortic root is not well visualized but is probably normal size. The inferior vena cava appeared normal and decreased > 50% with respiration (RAP 5-10 mmHg). Effusions There is no pericardial effusion. : OMKAR SWAN > Omkar Swan
--- NOTE | 2017-03-03 20:28 | PDOC CONSULTATION ---
Consultation Consult Date: 03/03/17 Attending physician:: PARESH NEUMANN Consult reason:: Chest pain, known CAD History of Present Illness Admission Date/PCP: 03/01/17 16:58 PARESH NEUMANN, Patient complains of: Chest pain History of Present Illness: Patient is a pleasant 76-year-old female admitted through emergency department for intermittent chest pain and left jaw pain 2 days. Patient has a history of a previous AL where she had left arm and left jaw pain. Patient took 2 baby Aspirin yesterday to relieve the pain and last night when she woke up with the pain she took some of her medication (beta aaron 100 mg). Patient states she usually takes her medications in the morning. Patient denies any new extremity edema or weight gain. Patient also denies any new weakness or increased tiredness due to shortness of breath or the chest pain. Patient takes Lasix daily and is on 3L home O2. Patient lost her 2 years ago and states she has had a rough 2 years and is having lots of stress. Daughters state the patient takes Ativan daily; patient states this takes the edge off her anxiety/ stress. Patient currently does not have any chest pain. There has been no recurrences since admission. Patient denies any history of blood clots. Patient' s previous AL was in 1999 and she had pain in her jaw and left arm during this event. Patient states she had a stent placed in her "heart and liver." Patient also has a history of kidney disease but does not know anything further about this. Patient also has non-Hodgkin's lymphoma, hypertension, hypercholesterolemia, CHF, and COPD. Patient was last admitted to the hospital about 2 years ago. This history was reviewed, supplemented and confirmed. Past Medical History Cardiac Medical History: Reports: Congestive Heart Failure, Coronary Artery Disease, Myocardial Infarction - 1999 w/ stent, Hyperlipidema, Hypertension Denies: Atrial Fibrillation Pulmonary Medical History: Reports: Bronchitis, Pneumonia Denies: Asthma, Chronic Obstructive Pulmonary Disease (COPD), Tuberculosis Neurological Medical History: Denies: Migraine, Seizures Endocrine Medical History: Reports: Hypothyroidism Denies: Diabetes Mellitus Type 1, Diabetes Mellitus Type 2 Renal/ Medical History: Reports: Chronic Kidney Disease, End Stage Renal Disease Malignancy Medical History: Reports: Leukemia GI Medical History: Reports: Gastroesophageal Reflux Disease Denies: Hiatal Hernia Musculoskeltal Medical History: Reports: Arthritis - gout Psychiatric Medical History: Reports: Depression Denies: Attention Deficit Hyperactivity Disorder, Bipolar Disorder Hematology: Denies: Anemia, Sickle Cell Disease Past Surgical History Past Surgical History: Reports: Cardiac Catheterization, Thyroidectomy Denies: Appendectomy, Section, Cholecystectomy, Hysterectomy, Mastectomy, Orthopedic Surgery, Tonsillectomy, Tubal Ligation, Vascular Surgery Social History Information Source: Patient Lives with: Alone Smoking Status: Former Smoker Frequency of Alcohol Use: None Hx Recreational Drug Use: No Hx Prescription Drug Abuse: No - Advance Directive Resuscitation Status: Full Code Family History Family History: None, CVA Parental Family History Reviewed: Yes Children Family History Reviewed: Yes Sibling(s) Family History Reviewed.: Yes Medication/Allergy Home Medications: Allopurinol [Zyloprim 300 mg Tablet] 300 mg PO DAILY 03/01/17 Atorvastatin Calcium [Lipitor 10 mg Tablet] 10 mg PO QHS 03/01/17 Colchicine [Colcrys 0.6 mg Tablet] 0.6 mg PO DAILY 03/01/17 Duloxetine HCl 30 mg PO Q12 03/01/17 Escitalopram Oxalate [Lexapro 10 mg Tablet] 10 mg PO DAILY 03/01/17 Furosemide [Lasix 40 mg Tablet] 40 mg PO QAM 03/01/17 Gabapentin [Neurontin 100 mg Capsule] 100 mg PO Q8 03/01/17 Isosorbide Mononitrate [Imdur 60 mg Tablet.er] 60 mg PO DAILY 03/01/17 Levothyroxine Sodium [Synthroid] 125 mcg PO QAM 03/01/17 Lorazepam [Ativan 0.5 mg Tablet] 0.5 mg PO TIDP PRN 03/01/17 Metoprolol Succinate [Toprol XL 100 mg Tablet] 100 mg PO DAILY 03/01/17 Zolpidem Tartrate [Ambien 5 mg Tablet] 5 mg PO QHS 03/01/17 Allergies/Adverse Reactions: Iodinated Contrast- Oral and IV Dye [IV Dye, Iodine Containing] Allergy (Unknown , Verified 03/01/17 11:23) levofloxacin [From Levaquin] Allergy (Unknown, Verified 03/01/17 11:23) simvastatin [Simvastatin] Allergy (Unknown, Verified 03/01/17 11:23) tramadol Allergy (Verified 03/01/17 11:23) Review of Systems Constitutional: ABSENT: chills, fever(s), headache(s), weight gain, weight loss Eyes: ABSENT: visual disturbances Ears: ABSENT: hearing changes Nose, Mouth, and Throat: ABSENT: as per HPI, headache(s), mouth pain, sore throat, vertigo, other Cardiovascular: PRESENT: chest pain, dyspnea on exertion, edema Respiratory: PRESENT: dyspnea. ABSENT: as per HPI, cough, hemoptysis, sputum, other Gastrointestinal: ABSENT: as per HPI, abdominal pain, bloating, coffee ground emesis, constipation, diarrhea, dysphagia, heartburn, hematemesis, hematochezia , melena, nausea, vomiting, other Genitourinary: ABSENT: as per HPI, difficulty urinating, dysuria, hematuria, nocturia, other Musculoskeletal: ABSENT: as per HPI, back pain, deformity, joint swelling, muscle weakness, other Integumentary: ABSENT: as per HPI, diaphoresis, erythema, lesions, pruritus, rash, wounds, other Neurological: ABSENT: abnormal gait, abnormal speech, confusion, dizziness, focal weakness, syncope Psychiatric: ABSENT: anxiety, depression, homidical ideation, suicidal ideation Endocrine: ABSENT: cold intolerance, heat intolerance, polydipsia, polyuria Physical Exam Vital Signs: Temp Pulse Resp BP Pulse Ox 97.9 F 56 L 16 147/66 H 94 03/03/17 17:07 03/03/17 17:07 03/03/17 17:07 03/03/17 17:07 03/03/17 17:07 Intake & Output 03/02/17 03/03/17 03/04/17 06:59 06:59 06:59 Intake Total 525 1688 518 Output Total 0 Balance 525 1688 518 Weight 99.1 kg 99.1 kg General appearance: PRESENT: no acute distress, well-developed, well-nourished Head exam: PRESENT: atraumatic, normocephalic Eye exam: PRESENT: conjunctiva pink, EOMI, PERRLA. ABSENT: scleral icterus Ear exam: PRESENT: normal external ear exam Mouth exam: PRESENT: moist, tongue midline Neck exam: ABSENT: carotid bruit, JVD, lymphadenopathy, thyromegaly Respiratory exam: PRESENT: clear to auscultation shan. ABSENT: rales, rhonchi, wheezes Cardiovascular exam: PRESENT: RRR, +S1 - normal, +S2 - normal, systolic murmur - 2/6 aortic area. ABSENT: diastolic murmur, rubs Pulses: PRESENT: normal dorsalis pedis pul GI/Abdominal exam: PRESENT: normal bowel sounds, soft. ABSENT: distended, guarding, mass, organolmegaly, rebound, tenderness Rectal exam: PRESENT: deferred Extremities exam: PRESENT: full ROM, +1 edema - chronic. ABSENT: calf tenderness, clubbing, pedal edema Neurological exam: PRESENT: alert, awake, oriented to person, oriented to place , oriented to time, oriented to situation, CN II-XII grossly intact. ABSENT: motor sensory deficit Psychiatric exam: PRESENT: appropriate affect, normal mood. ABSENT: homicidal ideation, suicidal ideation Skin exam: PRESENT: dry, intact, warm. ABSENT: cyanosis, rash Results Laboratory Results: 03/03/17 04:40 03/03/17 04:40 03/03/17 03/03/17 04:40 04:40 WBC 10.9 H RBC 3.64 L Hgb 12.1 Hct 35.5 L MCV 97 MCH 33.2 MCHC 34.1 RDW 14.0 Plt Count 154 Sodium 139.3 Potassium 3.9 Chloride 99 Carbon Dioxide 29 Anion Gap 11 BUN 25 H Creatinine 1.22 Est GFR ( Amer) 52 L Est GFR (Non-Af Amer) 43 L Glucose 157 H Calcium 9.2 03/01/17 03/02/17 03/02/17 18:02 00:11 06:30 CK-MB (CK-2) 0.47 0.44 0.40 Troponin I 0.056 0.054 0.044 EKG Comments: Sinus rhythm with non specic st-t changes Impressions: Chest X-Ray 03/01/17 10:54 IMPRESSION: Borderline cardiomegaly without CHF. Assessment & Plan - Diagnosis (1) Chest pain Qualifiers: Chest pain type: unspecified Qualified Code(s): R07.9 - Chest pain, unspecified Is this a current diagnosis for this admission?: Yes (2) CAD (coronary artery disease) Qualifiers: Coronary Disease-Associated Artery/Lesion type: unspecified vessel or lesion type [place] vs. transplanted heart: [place] heart Associated angina: without angina Qualified Code(s): I25.10 - Atherosclerotic heart disease of [place] coronary artery without angina pectoris (3) CKD (chronic kidney disease) stage 3, GFR 30-59 ml/min Is this a current diagnosis for this admission?: Yes (4) COPD (chronic obstructive pulmonary disease) Is this a current diagnosis for this admission?: Yes (5) HTN (hypertension) Is this a current diagnosis for this admission?: Yes - Notes Notes: Chest pain: Patient has some typical and atypical features of chest pain. Cardiac enzymes so far has been mildly abnormal. Electrocardiogram did not show any significant ST segment depression changes. Multiple differential diagnoses exist in this patient. In descending order of probability this includes underlying coronary artery disease with acute coronary syndrome, gastroesophageal reflux, musculoskeletal pain, referred pain from elsewhere, anxiety panic disorder etc.Patient has significant cardiac risk factors and known CAD with prior stent, which indicates that there is a intermediate to high probability of chest discomfort coming from underlying CAD. Feel that it would need to be evaluated further. Discussed evaluation to assess this. In view of chronic kidney disease, the best option would be to do a nuclear stress test. In this regard risk benefits of nuclear stress test and other alternative processes were discussed in detail. The patient prefers to undergo nuclear stress test. The small risk of radiation, myocardial infarction, , cardiac arrhythmias, respiratory distress etc. were discussed. Patient understood the risks and gave informed consent. Nuclear stress test was therefore scheduled. For risk evaluation, patient is also being scheduled for a 2-D echocardiogram. Patient questions were answered. Coronary artery disease patient has known history of CAD. Currently admitted with chest pain and had recurrence during the stress test. Now chest pain- free. There were no EKG changes and enzymes are negative. Patient will benefit from a nuclear stress test. Patient will also benefit from a 2-D echocardiogram for risk stratification. Patient to be treated with antiplatelet therapy, high potency statin therapy, beta blockers, angiotensin receptor aaron, CECE inhibitors et cetera. Patient advised against tobacco abuse in any form. Patient to follow healthy lifestyle, low-cholesterol diet et cetera. Chronic kidney disease: Currently stable. Methods to reduce progression of chronic kidney disease discussed. This would include good control of blood pressure, diabetes, treatment of sleep apnea if present, weight loss etc. Also discussed avoiding nephrotoxic drugs and medication, IVP dye etc. certain blood pressure medications such as CECE inhibitor, ARB can also reduce progression of chronic kidney disease. Hypertension: Reasonably well controlled. Blood pressure goal in this patient is 135/85 or less. This was discussed with the patient. Currently blood pressure under reasonable control. Better medication for this patient are CECE inhibitor/ARB/beta aaron etc. discussed side effects of uncontrolled hypertension and also severe hypotension. COPD patient encouraged to avoid first-hand and secondhand smoking. Patient also advised to avoid environmental pollutants. Patient to use bronchodilator and steroid therapy as has been prescribed by PMD and other specialists. - Time Time Spent: 30 to 50 Minutes - CODE STATUS was discussed, patient remains full code. Surrogate decision-maker unchanged. Multiple medical problems were addressed. More than 50% of the time spent coordinating care, discussing management plans with involved caregivers. Management plans discussed with involved personnels. Medical decision making was of moderate to high complexity , patient's has multiple comorbidities. Medications reviewed and adjusted accordingly: Yes
--- NOTE | 2017-03-03 20:31 | PDOC PROGRESS REPORT ---
Subjective Progress Note for:: 03/03/17 Subjective:: Patient seems to be doing better with gradual improvement. Pt is denying any chest arm or neck discomfort. Patient denying any PND, orthopnea. Patient denied any sustained palpitations, dizziness, syncope, near syncope. Patient denying any fever chills. Patient denying any other significant discomfort. Patient is maintaining sinus rhythm. Review of systems: Rest review of systems negative. Medications: Medications have been reviewed. Patient was seen in the morning. Nuclear stress test risk benefits were discussed. Informed consent was obtained. On questioning patient denied any recurrence of chest pain. She has ambulated to the bathroom without any difficulty. Patient does have shortness of breath on exertion. She claims to have oxygen at home. Physical Exam Vital Signs: Temp Pulse Resp BP Pulse Ox 97.9 F 56 L 16 147/66 H 94 03/03/17 17:07 03/03/17 17:07 03/03/17 17:07 03/03/17 17:07 03/03/17 17:07 Intake & Output 03/02/17 03/03/17 03/04/17 06:59 06:59 06:59 Intake Total 525 1688 518 Output Total 0 Balance 525 1688 518 Weight 99.1 kg 99.1 kg Exam: GENERAL: well-nourished and in no acute distress. Alert and oriented x3 HEAD: Atraumatic, normocephalic. EYES: Pupils equal round and reactive to light, extraocular movements intact, sclera anicteric, conjunctiva are normal. ENT: TMs normal, nares patent, oropharynx clear without exudates. Moist mucous membranes. No oral ulcerations or bleeding gums noted NECK: supple without lymphadenopathy. Trachea is central. No cervical or axillary lymphadenopathy noted. Carotids are 2+, JVD WNL LUNGS: Respiration seems nonlabored, no significant accessory muscle action noted. Breath sounds clear to auscultation bilaterally and equal noted. No wheezes rales or rhonchi noted. No significant dullness noted on percussion. CHEST: Palpation of the chest wall shows no significant chest wall tenderness. No other significant abnormalities noted. HEART: [place] LINE PILOT, No PSH, 1/6 KASHIF aortic area, 1/6 bryan systolic murmur mitral area, no rubs, no gallops. ABDOMEN: Soft, no significant tenderness appreciated, normoactive bowel sounds. No guarding, no rebound. No rigidity noted . No masses appreciated. EXTREMITIES: Pedal pulses are 1-2+, no calf tenderness noted. No clubbing or cyanosis.trace to 1+ pedal edema noted NEUROLOGICAL: Focused neurological exam showed no significant neurologic deficit. Normal speech, no focal weakness appreciated. PSYCH: Normal mood, normal affect. Judgment and insight within normal limits. SKIN: No significant ecchymosis, rash, ulcerations or signs of pruritus noted. MUSCULOSKELETAL EXAM: No significant joint swelling noted. Results Laboratory Results: 03/03/17 04:40 03/03/17 04:40 03/03/17 03/03/17 04:40 04:40 WBC 10.9 H RBC 3.64 L Hgb 12.1 Hct 35.5 L MCV 97 MCH 33.2 MCHC 34.1 RDW 14.0 Plt Count 154 Sodium 139.3 Potassium 3.9 Chloride 99 Carbon Dioxide 29 Anion Gap 11 BUN 25 H Creatinine 1.22 Est GFR ( Amer) 52 L Est GFR (Non-Af Amer) 43 L Glucose 157 H Calcium 9.2 03/01/17 03/02/17 03/02/17 18:02 00:11 06:30 CK-MB (CK-2) 0.47 0.44 0.40 Troponin I 0.056 0.054 0.044 EKG Comments: Sinus rhythm, left axis deviation, no acute ST-T wave changes are noted. Impressions: Chest X-Ray 03/01/17 10:54 IMPRESSION: Borderline cardiomegaly without CHF. Assessment & Plan - Diagnosis (1) Chest pain Qualifiers: Chest pain type: unspecified Qualified Code(s): R07.9 - Chest pain, unspecified Is this a current diagnosis for this admission?: Yes (2) CAD (coronary artery disease) Qualifiers: Coronary Disease-Associated Artery/Lesion type: unspecified vessel or lesion type [place] vs. transplanted heart: [place] heart Associated angina: without angina Qualified Code(s): I25.10 - Atherosclerotic heart disease of [place] coronary artery without angina pectoris (3) CKD (chronic kidney disease) stage 3, GFR 30-59 ml/min Is this a current diagnosis for this admission?: Yes (4) COPD (chronic obstructive pulmonary disease) Is this a current diagnosis for this admission?: Yes (5) HTN (hypertension) Is this a current diagnosis for this admission?: Yes (6) Obesity Qualifiers: Obesity type: unspecified obesity type Obesity classification: adult class 2 (BMI 35 ? 39.9) Body mass index: unspecified BMI Is this a current diagnosis for this admission?: Yes - Notes Notes: Chest pain: This was evaluated with a nuclear stress test. The nuclear stress test came back negative for any pharmacologic stress-induced ischemia. Patient' s medical regimen was reviewed and is felt to be satisfactory. Patient could follow-up with me if she wishes. Patient was informed that occasionally single- vessel disease or balanced ischemia could be missed. Results were related to Dr. Redd. CAD: Patient status post stent in the past. Currently nuclear stress test negative for significant ischemia. Recommend risk factor modification and medical management. Chronic kidney disease: Currently stable. COPD: Currently stable patient to continue on oxygen and other therapies as prescribed. Hypertension: Blood pressure goal is 135/85 or less. Currently relatively well controlled. Obesity: Patient encouraged in weight loss. Sleep disordered breathing: It is felt that patient may have underlying sleep apnea. Patient advised to get tested for it. Discussed increased risk of sleep apnea associated with cardiovascular event risk. Patient was seen multiple times. Total time exceeds 40 minutes. In the morning nuclear stress test procedure, risks benefits, alternatives were discussed. Patient seen during the stress test. Patient also seen after stress test when results were discussed with the patient in detail. Patient's questions were answered. Nuclear stress test results were discussed with the patient. Patient was informed that no definitive evidence of pharmacologic stress- induced ischemia noted. No definite fixed defects were noted. Patient informed that occasionally significant single vessel disease or balanced ischemia could be missed. However based on the current study results, would recommend aggressive risk factor modification and medical therapy. It may also be worthwhile to consider evaluation or empiric management of other causes of chest pain. Should no other cause be found and if persistent in having chest pain, then cardiac catheterization should be considered. Right now, recommendations are for aggressive risk factor modification and medical management. - Time Time with patient: Greater than 35 minutes Medications reviewed and adjusted accordingly: Yes
--- NOTE | 2017-03-04 08:38 | PDOC DISCHARGE SUMMARY ---
General - Admit/Disc Date/PCP Admission Date/Primary Care Provider: 03/01/17 16:58 PARESH NEUMANN, Discharge Date: 03/03/17 - Discharge Diagnosis (1) Acute coronary syndrome Is this a current diagnosis for this admission?: Yes Summary: Resolved. Stress test was unremarkable (2) CAD (coronary artery disease) Summary: Stable will continue with current medications. Stress test and echocardiogram reviewed (3) CKD (chronic kidney disease) stage 3, GFR 30-59 ml/min Is this a current diagnosis for this admission?: Yes (4) CLL (chronic lymphocytic leukemia) Is this a current diagnosis for this admission?: Yes (5) COPD (chronic obstructive pulmonary disease) Is this a current diagnosis for this admission?: Yes (6) Hypothyroid Is this a current diagnosis for this admission?: Yes (7) HTN (hypertension) Is this a current diagnosis for this admission?: Yes Summary: Continue current medications (8) Bradycardia Is this a current diagnosis for this admission?: Yes Summary: Improved slightly with adjustment of beta blockers - Additional Information Resuscitation Status: Full Code Discharge Diet: Cardiac Discharge Activity: Activity As Tolerated, Balance Activity w/Rest Home Medications: Allopurinol [Zyloprim 300 mg Tablet] 300 mg PO DAILY 03/01/17 Atorvastatin Calcium [Lipitor 10 mg Tablet] 10 mg PO QHS 03/01/17 Colchicine [Colcrys 0.6 mg Tablet] 0.6 mg PO DAILY 03/01/17 Duloxetine HCl 30 mg PO Q12 03/01/17 Escitalopram Oxalate [Lexapro 10 mg Tablet] 10 mg PO DAILY 03/01/17 Furosemide [Lasix 40 mg Tablet] 40 mg PO QAM 03/01/17 Gabapentin [Neurontin 100 mg Capsule] 100 mg PO Q8 03/01/17 Isosorbide Mononitrate [Imdur 60 mg Tablet.er] 60 mg PO DAILY 03/01/17 Levothyroxine Sodium [Synthroid] 125 mcg PO QAM 03/01/17 Lorazepam [Ativan 0.5 mg Tablet] 0.5 mg PO TIDP PRN 03/01/17 Metoprolol Succinate [Toprol XL 100 mg Tablet] 100 mg PO DAILY 03/01/17 Zolpidem Tartrate [Ambien 5 mg Tablet] 5 mg PO QHS 03/01/17 History of Present Illness History of Present Illness: EVER CARRASCO is a 76 year old female Hospital Course Hospital Course: The patient did well after the hospitalization. Her bradycardia which was significant on admission and 24 hours after the admission have improved once her beta blockers medications have been readjusted Physical Exam Vital Signs: Temp Pulse Resp BP Pulse Ox 97.9 F 56 L 16 147/66 H 94 03/03/17 17:07 03/03/17 17:07 03/03/17 17:07 03/03/17 17:07 03/03/17 17:07 Intake & Output 03/03/17 03/04/17 03/05/17 06:59 06:59 06:59 Intake Total 1688 518 Output Total 0 Balance 1688 518 Weight 99.1 kg General appearance: PRESENT: no acute distress Head exam: PRESENT: atraumatic Eye exam: PRESENT: conjunctiva pink Neck exam: ABSENT: JVD Respiratory exam: PRESENT: rhonchi Cardiovascular exam: PRESENT: bradycardia, +S1, +S2 Pulses: PRESENT: +1 pedal pulses bilateral Vascular exam: PRESENT: normal capillary refill GI/Abdominal exam: PRESENT: normal bowel sounds, soft Extremities exam: PRESENT: full ROM, tenderness Musculoskeletal exam: PRESENT: full ROM, tenderness Neurological exam: PRESENT: awake Results Laboratory Results: 03/03/17 04:40 03/03/17 04:40 03/01/17 03/02/17 03/02/17 18:02 00:11 06:30 CK-MB (CK-2) 0.47 0.44 0.40 Troponin I 0.056 0.054 0.044 Impressions: Chest X-Ray 03/01/17 10:54 IMPRESSION: Borderline cardiomegaly without CHF. Plan Time Spent: Greater than 30 Minutes
== END 2017-03-03 17:25 | disposition home or self-care (01) | DRG 311 ==
LOC: ER 10:22 → EH 15:11 → UNDOADMIN 15:11 → 3S 16:58 → EH 17:10
PROVIDERS: ADMIT Internal Medicine; ATTEND Internal Medicine
DX: I24.9 Acute ischemic heart disease, unspecified (principal); I13.0 Hypertensive heart and chronic kidney disease with heart failure and stage 1 through stage 4 chronic kidney disease, or unspecified chronic kidney disease; C91.10 Chronic lymphocytic leukemia of B-cell type not having achieved remission; I25.10 Atherosclerotic heart disease of native coronary artery without angina pectoris; N18.3 Chronic kidney disease, stage 3 (moderate); I50.9 Heart failure, unspecified; E78.5 Hyperlipidemia, unspecified; E03.9 Hypothyroidism, unspecified; Z68.37 Body mass index [BMI] 37.0-37.9, adult; E66.9 Obesity, unspecified; I25.2 Old myocardial infarction; Z99.81 Dependence on supplemental oxygen
CPT/HCPCS: 36415; 71010; 78452; 80048; 80053; 82550; 82553; 84484; 85025; 85027; 93005; 93010; 93017; 93306; 99291; A9500; J0280; J1650; J2785; J3490; Q9969

== ENCOUNTER → 2017-04-27 | Outpatient (CLI) | payer MEDICARE, OTHER | LOC: RAD 15:56 | PROVIDERS: ATTEND Orthopaedic Surgery | DX: Z53.9 Procedure and treatment not carried out, unspecified reason (principal) ==

== ENCOUNTER → 2020-03-13 | Outpatient (CLI) | payer MEDICARE, OTHER ==
--- NOTE | 2020-03-13 15:23 | RADIOLOGY REPORT (SQ) ---
EXAM DESCRIPTION: NM 3 PHASE BONE SCAN IMAGES COMPLETED DATE/TIME: 03/13/2020 2:05 pm REASON FOR STUDY: M25.551 PAIN IN RIGHT HIP M25.551 PAIN IN RIGHT HIP COMPARISON: Various imaging studies. RADIONUCLIDE AND DOSE: 20 millicuries Tc99m MDP. The route of agent administration: Intravenous. ADDITIONAL DRUGS AND DOSES: None. TECHNIQUE: Following injection of the radiopharmaceutical, serial blood flow images acquired. Equil ibrium blood pool images then acquired. Routine delayed images at 3 hours acquired of the areas of c linical concern with additional focused images as needed. AREA OF INTEREST: Right hip LIMITATIONS: None. FINDINGS: VASCULAR FLOW IMAGES: Blood flow is synchronous and symmetrical. No area of hyperemia. BLOOD POOL IMAGES: No focal areas of hyperperfusion. BONES: Normal visualization without areas of photopenia or increased bony uptake of radiopharmaceutic al. KIDNEYS: Kidneys not imaged. OTHER: No other significant finding. IMPRESSION: NORMAL 3 PHASE BONE SCAN. COMMENT: Quality measure 147: Current bone scan is compared with any available plain radiographs, p rior bone scans, and CT/MRI. TECHNICAL DOCUMENTATION: JOB ID: [id number] 2010 [employer]- All Rights Reserved Reading location - IP/workstation name: [email or web address]
== END ==
LOC: RAD 10:54
PROVIDERS: ATTEND Family Medicine
DX: M25.551 Pain in right hip (principal)
CPT/HCPCS: 78315; A9503; Q9969

== ENCOUNTER → 2020-06-27 | Day surgery (SDC) | payer MEDICARE, OTHER ==
[~2020-06-27] MED LIST: BUPIVACAINE HCL 0.5 % INJ/PF 30 ML SDV ONE; LIDOCAINE 1% INJ-PF (10 MG/ML) 30 ML SDV ONE
--- NOTE | 2020-06-27 09:31 | Operative Report ---
PREOPERATIVE DIAGNOSIS: Spondylolisis without myopathy or radiculopathy M47.818// Lumbar Sacral Spondylolisis without myopathy or radiculopathy M47.817 POSTOPERATIVE DIAGNOSIS:Spondylolisis without myopathy or radiculopathy M47.818// Lumbar Sacral Spondylolisis without myopathy or radiculopathy M47.817 PROCEDURE: 1. Radiofrequency Ablation of bilateral L5 dorsal Ramus 2. Sacroiliac Joint Ablation - Lateral Branches of bilateral S1, S2, S3 DATE OF PROCEDURE:27 June 2020 ANESTHESIA: Local COMPLICATIONS: None CONSENT: A full description of the procedure was provided including benefits as well as possible complications. All questions were answered and informed consent was given and signed. ASA guidelines for fasting were verified prior to se dation. PROCEDURE IN DETAIL The patient was brought into the fluoroscopy suite and carefully assisted into the prone position on the fluoroscopy table and allowed to adjust to a position of comfort. A grounding pad was placed on the right thigh. The low back and buttocks were widely prepped with a chloraprep solution, allowed to air dry and draped in standard sterile surgical fashion. Local anesthesia was provided by 12 mL of 1 % lidocaine delivered with a 25 g needle. PROCEDURE #1: Radiofrequency Ablation of Dorsal Ramus of bilateral L5. A 17g 100mm radiofrequency introducer needle was placed to the planned anatomic target, guided with intermittent fluoroscopy with a perpendicular approach, to terminally place at the bilateral sacral ala. The stylets were removed and the radiofrequency probes with a 4mm active tip were then inserted. Needle tip position of the probes were verified in the AP, oblique, and lateral views. At each site, the medial branch nerve was stimulated at 2Hz to a maximum of 1- 2volts determined to finalize safe needle and electrode placement. The patient was awake and responsive during this portion of the procedure. Each target was anesthetized with 2mL of 2 % Sensorcaine anesthesia for lesioning and then each target was lesioned at 80 degrees Celsius for 2 minutes and 30 seconds. Tissue impedences were noted to be between 250 and 500 Ohms. PROCEDURE #2: Radiofrequency Ablation of bilateral S1, S2, S3 Lateral Branches Using the AP fluoroscopic view for visualization of the lateral PSFA as defined by the pre-placed 27-gauge Quincke needles, appropriate skin starting positions were defined. Using the PSFA as a "clock-face", the positions were: S1; bilateral = 1 and 5 oclock S2; bilateral = 1 and 5 oclock S3; bilateral = 3 oclock Using fluoroscopic guidance, a 17g introducer needle was inserted sequentially onto the target positions described above until the introducer tip touched the bony surface of the sacrum. The stylet was withdrawn from the introducer and the radiofrequency probe with a 4 mm active tip was fully inserted into the introducer. A lateral view was obtained for standard reference. At each of the targets, needle placement was verified with the use of multi-planar fluoroscopy. The needle tip position was approximately 7 - 10mm lateral to the PSFA as determined by using an Epsilon ruler. At each site, the lateral branch nerve was stimulated at 2 Hz to a maximum of 1- 2 volts determined to finalize safe needle and electrode placement. The patient was awake and responsive during this portion of the procedure. Each target was anesthetized with 2 mL of 2 % Sensorcaine anesthesia for lesioning and then each target was lesioned at 80 degrees Celsius for 2 minutes and 30 seconds. Tissue impedences were noted to be between 250- 500 Ohms. At the conclusion of the lesioning the needles were removed and bandages placed over the needle placement sites and the patient returned to the supine position on a stretcher and transpo rted to the recovery room without hemodynamic, neurologic, or allergic reactions. Fluoroscopic images were printed for hard copy recording and digitally archived. FLUOROSCOPIC INTERPRETATION: Appropriate epidurogram obtained. Appropriate lesioning of the 10 targets noted. POST PROCEDURE EVALUATION: The patient was comfortable in the recovery room. The patient is aware that pain may worsen before remitting and 4 6 weeks may be required prior to the onset of pain relief. IMPRESSION: 1. Technically successful sacral lateral branch, lumbar dorsal ramus for denervation from L5-S3 on the bilateral without complication. 2. RTC in 2 weeks. 3. Estimated Blood Loss: None 4. Fluoroscopy time: 30 seconds
== END ==
LOC: RAD 09:30
PROVIDERS: ATTEND Family Medicine
DX: M47.817 Spondylosis without myelopathy or radiculopathy, lumbosacral region (principal); M47.818 Spondylosis without myelopathy or radiculopathy, sacral and sacrococcygeal region
CPT/HCPCS: 64625; J3490 ×2